=== PATIENT | female | born 1995 | race Caucasian/White ===

== ENCOUNTER 2017-06-02 23:53 | Emergency (ER) | payer MEDICARE, OTHER ==
[2017-06-03] MEDS ORDERED: 0.9 % SODIUM CHLORIDE 1,000 ML BAG IV ONE (00:19)
[2017-06-03] MEDS ORDERED: ONDANSETRON HCL IV 4 MG/2 ML VIAL IVP ONE (00:20)
[2017-06-03 00:41] LABS: BASO % 0.2 % (0-6); EOS % 0.6 % (0-6); GRAN % 75.9 % (47-80); MEAN CELL VOLUME 88.1 fl (81-97); MEAN CORPUSCULAR HEMOGLOBIN 30.8 pg (27-33); MEAN PLATELET VOLUME 9.4 fl (7.4-10.4); MONO % 6.3 % (0-9); PLATELET COUNT 309 K/uL (130-400); RED BLOOD COUNT 4.54 M/uL (3.80-5.40); RED CELL DISTRIBUTION WIDTH 13.1 % (11.5-14.5); URINE APPEARANCE CLEAR; URINE BILIRUBIN NEGATIVE (NEGATIVE); URINE BLOOD NEGATIVE (NEGATIVE); URINE COLOR YELLOW; URINE GLUCOSE (UA) NEGATIVE (NEGATIVE); URINE KETONE 15 mg/dL (NEGATIVE); URINE LEUKOCYTE ESTERASE NEGATIVE (NEGATIVE); URINE NITRITE NEGATIVE (NEGATIVE); URINE PROTEIN NEGATIVE (NEGATIVE); URINE UROBILINOGEN 0.2 E.U./dL (0.20 - 1.00); WHITE BLOOD COUNT W/O DIFF 14.5 K/uL (4.2-12.2)
[2017-06-03 00:55] LABS: BLOOD UREA NITROGEN 8 mg/dL (6-20); CREATININE 0.4 mg/dL (0.5-0.9); EST GLOMERULAR FILTRATION RATE > 60 mL/min; GLUCOSE,RANDOM 107 mg/dL (74-109)
--- NOTE | 2017-06-03 00:55 | Emergency Department Record ---
History of Present Illness - General Chief complaint: Vomiting Stated complaint: 7 WKS "CANT KEEP ANYTHING DOWN" Time Seen by Provider: 06/03/17 00:08 Source: Patient Mode of Arrival: Ambulatory Limitations: No limitations - History of Present Illness Initial comments: pt is 7 wks . she has had bouts of nausea but today she has not been able to keep water or food down and has vomited everytime she tries. she sees her ob in 6 days MD complaint: Nausea, Vomiting Onset/Timin -: Days(s) Description of Vomiting: Food contents Improves with: Rest Worsens with: Eating, Movement, Rest, Other Associated Symptoms: Fever/chills - Related Data Home Medications Medication Instructions Recorded Confirmed Last Taken Pnv No.95/Ferrous Fum/Folic AC 1 each PO DAILY 06/03/17 06/03/17 06/02/17 [ Multivitamin Tablet] Allergies Allergy/AdvReac Type Severity Reaction Status Date / Time Penicillins Allergy PT UNSURE Verified 06/03/17 00:00 OF REACTION Travel Screening - Travel/Exposure Within Last 30 Days Have you traveled within the last 30 days?: No - Travel Symptoms Symptom Screening: Vomiting Review of Systems Reviewed: No additional complaints except as noted below Constitutional: Reports: As per HPI. Denies: Chills, Fever, Malaise, Night sweats, Weakness, Weight change Eyes: Reports: As per HPI. Denies: Eye discharge, Eye pain, Photophobia, Vision change ENT: Reports: As per HPI. Denies: Congestion, Dental pain, Ear pain, Epistaxis , Hearing loss, Throat pain Respiratory: Reports: As per HPI. Denies: Cough, Dyspnea, Hemoptysis, Stridor, Wheezes Cardiovascular: Reports: As per HPI. Denies: Arrhythmia, Chest pain, Dyspnea on exertion, Edema, Murmurs, Orthopnea, Palpitations, Paroxysmal nocturnal dyspnea, Rheumatic Fever, Syncope Endocrine: Reports: As per HPI. Denies: Fatigue, Heat or cold intolerance, Polydipsia, Polyuria Gastrointestinal: Reports: As per HPI. Denies: Abdominal pain, Constipation, Diarrhea, Hematemesis, Hematochezia, Melena, Nausea, Vomiting Genitourinary: Reports: As per HPI. Denies: Abnormal menses, Discharge, Dyspareunia, Dysuria, Frequency, Hematuria, Incontinence, Retention, Urgency Musculoskeletal: Reports: As per HPI. Denies: Arthralgia, Back pain, Gout, Joint swelling, Myalgia, Neck pain Skin: Reports: As per HPI. Denies: Bruising, Change in color, Change in hair/ nails, Lesions, Pruritus, Rash Neurological: Reports: As per HPI. Denies: Abnormal gait, Confusion, Headache, Numbness, Paresthesias, Seizure, Tingling, Tremors, Vertigo, Weakness Psychiatric: Reports: As per HPI. Denies: Anxiety, Auditory hallucinations, Depression, Homicidal thoughts, Suicidal thoughts, Visual hallucinations Hematological/Lymphatic: Reports: As per HPI. Denies: Anemia, Blood Clots, Easy bleeding, Easy bruising, Swollen glands Past Medical History - SOCIAL HISTORY Smoking Status: Former smoker Alcohol Use: None Drug Use: None - RESPIRATORY Hx Respiratory Disorders: No - CARDIOVASCULAR Hx Cardio Disorders: No - NEURO Hx Neuro Disorders: No - GI Hx GI Disorders: No - Hx Genitourinary Disorders: No - ENDOCRINE Hx Endocrine Disorders: No - MUSCULOSKELETAL Hx Musculoskeletal Disorders: No - PSYCH Hx Psych Problems: No - HEMATOLOGY/ONCOLOGY Hx Hematology/Oncology Disorders: No Family Medical History Any Significant Family History?: Yes Hx Cancer: Mother, Grandparents *Cancer Comment: "SPIDER CELL" CANCER, LUNG Physical Exam - General General Appearance: Alert, Oriented x3, Cooperative, Mild distress - Head Head exam: Normal inspection - Eye Eye exam: Normal appearance, PERRL, EOMI Pupils: Normal accommodation - ENT ENT exam: Normal exam, Mucous membranes moist, Normal external ear exam, Normal orophraynx Ear exam: Normal external inspection. negative: External canal tenderness Nasal Exam: Normal inspection. negative: Discharge, Sinus tenderness Mouth exam: Normal external inspection, Tongue normal Teeth exam: Normal inspection. negative: Dental caries Throat exam: Normal inspection. negative: Tonsillar erythema, Tonsillar exudate - Neck Neck exam: Normal inspection, Full ROM. negative: Tenderness - Respiratory Respiratory exam: Normal lung sounds bilaterally. negative: Respiratory distress - Cardiovascular Cardiovascular Exam: Regular rate, Normal rhythm, Normal heart sounds - GI/Abdominal GI/Abdominal exam: Soft, Normal bowel sounds. negative: Tenderness - Rectal Rectal exam: Deferred - exam: Deferred - Extremities Extremities exam: Normal inspection, Full ROM, Normal capillary refill. negative: Tenderness - Back Back exam: Reports: Normal inspection, Full ROM. Denies: Muscle spasm, Rash noted, Tenderness - Neurological Neurological exam: Alert, CN II-XII intact, Normal gait, Oriented X3 - Psychiatric Psychiatric exam: Normal affect, Normal mood - Skin Skin exam: Dry, Intact, Normal color, Warm Course Vital Signs 06/03/17 00:02 Temperature 98.2 F Pulse Rate [ 72 Pulse Ox Probe] Respiratory 18 Rate Blood Pressure 124/66 [Left Arm] Pulse Ox 96 Medical Decision Making - Lab Data Result diagrams: 06/03/17 00:35 06/03/17 00:35 Lab Results 06/03/17 06/03/17 Range/Units 00:35 00:35 WBC 14.5 H (4.2-12.2) K/uL RBC 4.54 (3.80-5.40) M/uL Hgb 14.0 (11.6-16.0) gm/dl Hct 40.0 (35.0-47.0) % MCV 88.1 (81-97) fl MCH 30.8 (27-33) pg MCHC 35.0 (32-36) g/dl RDW 13.1 (11.5-14.5) % Plt Count 309 (130-400) K/uL MPV 9.4 (7.4-10.4) fl Gran % 75.9 (47-80) % Lymphocytes % 17.0 (16-45) % Monocytes % 6.3 (0-9) % Eosinophils % 0.6 (0-6) % Basophils % 0.2 (0-6) % Urine Color Yellow Urine Appearance Clear Urine pH 7.5 (5.0-8.0) Ur Specific [place] 1.015 (1.002-1.030) Urine Protein Negative (NEGATIVE) Urine Glucose (UA) Negative (NEGATIVE) Urine Ketones 15 mg/dl H (NEGATIVE) Urine Blood Negative (NEGATIVE) Urine Nitrite Negative (NEGATIVE) Urine Bilirubin Negative (NEGATIVE) Urine Urobilinogen 0.2 (0.20 - 1.00) E.U./dL Ur Leukocyte Esterase Negative (NEGATIVE) Disposition Disposition: Discharge Clinical Impression: Hyperemesis gravidarum Disposition: Home, Self-Care Condition: (1) Good Instructions: Hyperemesis Gravidarum (ED) Additional Instructions: push fluids. follow up with assistant grocery . return sooner if worse Forms: Patient Portal Access Quality - Quality Measures Quality Measures: N/A - Blood Pressure Screening Does Patient Have Any of the Following: No Blood Pressure Classification: Pre-Hypertensive BP Reading Systolic Measurement: 124 Diastolic Measurement: 66 Screening for High Blood Pressure: < Pre-Hypertensive BP, F/U Documented > [ G8950] Pre-Hypertensive Follow-up Interventions: Follow-up with rescreen every year.
== END 2017-06-03 01:33 | disposition home or self-care (01) ==
LOC: ER 23:53
DX: O21.0 Mild hyperemesis gravidarum (principal); Z3A.01 Less than 8 weeks gestation of pregnancy
CPT/HCPCS: 99284 ×2; 96374; 96361; 85025; 80048; 81003; J2405; J7030

== ENCOUNTER 2017-06-04 06:03 | Emergency (ER) | payer MEDICARE ==
[2017-06-04] MEDS: ONDANSETRON HCL IV 4 MG/2 ML VIAL IVP ONE (06:22)
[2017-06-04] MEDS: 0.9 % SODIUM CHLORIDE 1,000 ML BAG IV STA (06:23)
--- NOTE | 2017-06-04 06:25 | Emergency Department Record ---
History of Present Illness - General Chief complaint: Vomiting Stated complaint: 7 WKS "CANT KEEP ANYTHING DOWN" Time Seen by Provider: 06/04/17 06:24 Source: Patient Mode of Arrival: Ambulatory Limitations: No limitations - History of Present Illness Initial comments: pt here for intractable vomiting. she is 7 wks preg. she was here yesterday for the same. she sees her ob next week MD complaint: Nausea, Vomiting -: Days(s) Description of Vomiting: Watery Associated Abdominal Pain: No Associated Symptoms: Nausea/vomiting - Related Data Previous Rx's Medication Instructions Recorded Doxylamine Succinate [Unisom] 12.5 mg PO TID #20 tablet 06/04/17 Pyridoxine HCl (Vitamin B6) 25 mg PO TID #20 tablet 06/04/17 [Vitamin B-6] Allergies Allergy/AdvReac Type Severity Reaction Status Date / Time Penicillins Allergy PT UNSURE Verified 06/03/17 00:00 OF REACTION Travel Screening - Travel/Exposure Within Last 30 Days Have you traveled within the last 30 days?: No Review of Systems Reviewed: No additional complaints except as noted below Constitutional: Reports: As per HPI. Denies: Chills, Fever, Malaise, Night sweats, Weakness, Weight change Eyes: Reports: As per HPI. Denies: Eye discharge, Eye pain, Photophobia, Vision change ENT: Reports: As per HPI. Denies: Congestion, Dental pain, Ear pain, Epistaxis , Hearing loss, Throat pain Respiratory: Reports: As per HPI. Denies: Cough, Dyspnea, Hemoptysis, Stridor, Wheezes Cardiovascular: Reports: As per HPI. Denies: Arrhythmia, Chest pain, Dyspnea on exertion, Edema, Murmurs, Orthopnea, Palpitations, Paroxysmal nocturnal dyspnea, Rheumatic Fever, Syncope Endocrine: Reports: As per HPI. Denies: Fatigue, Heat or cold intolerance, Polydipsia, Polyuria Gastrointestinal: Reports: As per HPI. Denies: Abdominal pain, Constipation, Diarrhea, Hematemesis, Hematochezia, Melena, Nausea, Vomiting Genitourinary: Reports: As per HPI. Denies: Abnormal menses, Discharge, Dyspareunia, Dysuria, Frequency, Hematuria, Incontinence, Retention, Urgency Musculoskeletal: Reports: As per HPI. Denies: Arthralgia, Back pain, Gout, Joint swelling, Myalgia, Neck pain Skin: Reports: As per HPI. Denies: Bruising, Change in color, Change in hair/ nails, Lesions, Pruritus, Rash Neurological: Reports: As per HPI. Denies: Abnormal gait, Confusion, Headache, Numbness, Paresthesias, Seizure, Tingling, Tremors, Vertigo, Weakness Psychiatric: Reports: As per HPI. Denies: Anxiety, Auditory hallucinations, Depression, Homicidal thoughts, Suicidal thoughts, Visual hallucinations Hematological/Lymphatic: Reports: As per HPI. Denies: Anemia, Blood Clots, Easy bleeding, Easy bruising, Swollen glands Past Medical History - SOCIAL HISTORY Smoking Status: Former smoker Alcohol Use: None Drug Use: None - RESPIRATORY Hx Respiratory Disorders: No - CARDIOVASCULAR Hx Cardio Disorders: No - NEURO Hx Neuro Disorders: No - GI Hx GI Disorders: No - Hx Genitourinary Disorders: No - ENDOCRINE Hx Endocrine Disorders: No - MUSCULOSKELETAL Hx Musculoskeletal Disorders: No - PSYCH Hx Psych Problems: No - HEMATOLOGY/ONCOLOGY Hx Hematology/Oncology Disorders: No Family Medical History Any Significant Family History?: Yes Hx Cancer: Mother, Grandparents *Cancer Comment: "SPIDER CELL" CANCER, LUNG Physical Exam - General General Appearance: Alert, Oriented x3, Cooperative, Mild distress - Head Head exam: Normal inspection - Eye Eye exam: Normal appearance, PERRL, EOMI Pupils: Normal accommodation - ENT ENT exam: Normal exam, Mucous membranes dry, Normal external ear exam, Normal orophraynx Ear exam: Normal external inspection. negative: External canal tenderness Nasal Exam: Normal inspection. negative: Discharge, Sinus tenderness Mouth exam: Normal external inspection, Tongue normal Teeth exam: Normal inspection. negative: Dental caries Throat exam: Normal inspection. negative: Tonsillar erythema, Tonsillar exudate - Neck Neck exam: Normal inspection, Full ROM. negative: Tenderness - Respiratory Respiratory exam: Normal lung sounds bilaterally. negative: Respiratory distress - Cardiovascular Cardiovascular Exam: Regular rate, Normal rhythm, Normal heart sounds - GI/Abdominal GI/Abdominal exam: Soft, Normal bowel sounds. negative: Tenderness - Rectal Rectal exam: Deferred - exam: Deferred - Extremities Extremities exam: Normal inspection, Full ROM, Normal capillary refill. negative: Tenderness - Back Back exam: Reports: Normal inspection, Full ROM. Denies: Muscle spasm, Rash noted, Tenderness - Neurological Neurological exam: Alert, CN II-XII intact, Normal gait, Oriented X3 - Psychiatric Psychiatric exam: Normal affect, Normal mood - Skin Skin exam: Dry, Intact, Normal color, Warm Course Vital Signs 06/04/17 06:20 Temperature 98.1 F Pulse Rate [ 69 Pulse Ox Probe] Respiratory 18 Rate Blood Pressure 128/72 [Left Arm] Pulse Ox 98 - Reevaluation(s) Reevaluation #1: 06/04/17 06:58 d/w dr paulino medjasiel discussed Disposition Disposition: Discharge Clinical Impression: Hyperemesis gravidarum Disposition: Home, Self-Care Condition: (1) Good Instructions: Hyperemesis Gravidarum (ED) Additional Instructions: follow up with training and quality manager. return sooner if worse. use bria capsules and peppermint drops. push fluids Prescriptions: Doxylamine Succinate [Unisom] 12.5 mg PO TID #20 tablet Pyridoxine HCl (Vitamin B6) [Vitamin B-6] 25 mg PO TID #20 tablet Forms: Patient Portal Access Quality - Quality Measures Quality Measures: N/A - Blood Pressure Screening Does Patient Have Any of the Following: No Blood Pressure Classification: Pre-Hypertensive BP Reading Systolic Measurement: 128 Diastolic Measurement: 72 Screening for High Blood Pressure: < Pre-Hypertensive BP, F/U Documented > [ G8950] Pre-Hypertensive Follow-up Interventions: Follow-up with rescreen every year.
[2017-06-04] MEDS: 0.9 % SODIUM CHLORIDE 1,000 ML BAG IV ONE (07:00)
== END 2017-06-04 07:37 | disposition home or self-care (01) ==
LOC: ER 06:03
DX: O21.0 Mild hyperemesis gravidarum (principal); Z3A.01 Less than 8 weeks gestation of pregnancy
CPT/HCPCS: 99284 ×2; 96374; J2405; J7030

== ENCOUNTER 2017-08-02 01:55 | Emergency (ER) | payer MEDICAID, MEDICARE ==
[2017-08-02] MEDS ORDERED: DIPHENHYDRAMINE HCL IV 50 MG/ML VIAL IVP ONE (02:04)
[2017-08-02] MEDS ORDERED: METOCLOPRAMIDE HCL 10 MG/2 ML VIAL IVP ONE (02:04)
--- NOTE | 2017-08-02 02:10 | Emergency Department Record ---
History of Present Illness - General Chief complaint: Vomiting Stated complaint: MICHELLE MCMULLEN, 15 WKS Time Seen by Provider: 08/02/17 01:56 Source: Patient Mode of Arrival: Ambulatory Limitations: No limitations - History of Present Illness Initial comments: 22 yo female presents to ED for evaluation of nausea, vomiting, and dry heaves for the past 4 hours. Patient reports that she is approximately 15 weeks , denies abdominal pain, fevers, chills, or recent illness. Patient reports similar symptoms in May as well resulting from 1st trimester . Patient reports that she has Zofran at home but did not take any tonight. MD complaint: Nausea, Vomiting Onset/Timin -: Hour(s) Associated Abdominal Pain: No Radiation: None Severity: Moderate Consistency: Constant Improves with: None Worsens with: None Associated Symptoms: Denies other symptoms - Related Data Home Medications Medication Instructions Recorded Confirmed Last Taken Ondansetron [Zofran Odt] 4 mg PO Q8H 08/02/17 08/02/17 08/01/17 Previous Rx's Medication Instructions Recorded Ondansetron [Zofran Odt] 4 mg PO Q8H PRN #15 tab.rapdis 08/02/17 Allergies Allergy/AdvReac Type Severity Reaction Status Date / Time Penicillins Allergy PT UNSURE Verified 06/03/17 00:00 OF REACTION Review of Systems Constitutional: Denies: Chills, Fever, Malaise, Night sweats Eyes: Denies: Eye discharge, Eye pain ENT: Denies: Congestion, Ear pain, Epistaxis Respiratory: Denies: Cough, Dyspnea Cardiovascular: Denies: Chest pain, Dyspnea on exertion Endocrine: Denies: Fatigue, Heat or cold intolerance Gastrointestinal: Reports: Nausea, Vomiting. Denies: Abdominal pain Genitourinary: Denies: Incontinence, Retention Musculoskeletal: Denies: Arthralgia, Gout, Joint swelling Skin: Denies: Bruising, Change in color Neurological: Denies: Abnormal gait, Confusion, Headache, Seizure Psychiatric: Denies: Anxiety Hematological/Lymphatic: Denies: Anemia, Blood Clots Past Medical History - SOCIAL HISTORY Smoking Status: Former smoker Drug Use: None - RESPIRATORY Hx Respiratory Disorders: No - CARDIOVASCULAR Hx Cardio Disorders: No - NEURO Hx Neuro Disorders: No - GI Hx GI Disorders: No - Hx Genitourinary Disorders: No - ENDOCRINE Hx Endocrine Disorders: No - MUSCULOSKELETAL Hx Musculoskeletal Disorders: No - PSYCH Hx Psych Problems: No - HEMATOLOGY/ONCOLOGY Hx Hematology/Oncology Disorders: No Family Medical History Hx Cancer: Mother, Grandparents *Cancer Comment: "SPIDER CELL" CANCER, LUNG Physical Exam - General General Appearance: Alert, Oriented x3, Cooperative, Mild distress Limitations: No limitations - Head Head exam: Atraumatic, Normocephalic, Normal inspection Head exam detail: negative: Abrasion, Contusion, Barry's sign, General tenderness, Hematoma, Laceration - Eye Eye exam: Normal appearance. negative: Conjunctival injection, Periorbital swelling, Periorbital tenderness, Scleral icterus - ENT Ear exam: negative: Auricular hematoma, Auricular trauma Nasal Exam: negative: Active bleeding, Discharge, Dried blood, Foreign body Mouth exam: negative: Drooling, Laceration, Muffled voice, Tongue elevation - Neck Neck exam: Normal inspection. negative: Meningismus, Tenderness - Respiratory Respiratory exam: Normal lung sounds bilaterally. negative: Rales, Respiratory distress, Rhonchi, Stridor - Cardiovascular Cardiovascular Exam: Regular rate, Normal rhythm, Normal heart sounds - GI/Abdominal GI/Abdominal exam: Soft. negative: Rebound, Rigid, Tenderness - Rectal Rectal exam: Deferred - exam: Deferred - Extremities Extremities exam: Normal inspection. negative: Calf tenderness, Pedal edema, Tenderness - Back Back exam: Denies: CVA tenderness (R), CVA tenderness (L) - Neurological Neurological exam: Alert, Normal gait, Oriented X3 - Psychiatric Psychiatric exam: Anxious - Skin Skin exam: Normal color. negative: Abrasion Type of lesion: negative: abrasion Course - Reevaluation(s) Reevaluation #1: 08/02/17 02:45 Labs reviewed, CO2 19, WBC 15.2. Labs are otherwise grossly unremarkable for an acute process. Abdominal examination is 100% non-tender, will reassessed following UA result. Reevaluation #2: 08/02/17 02:53 Patient reassessed and reports that she is feeling much improved. Will continue to observe pending UA results. Reevaluation #3: 08/02/17 03:09 UA reviewed and appears negative for infection. Patient's symptoms are improved and she appears stable for discharge at this time on Zofran for recurrent vomiting symptoms. Medical Decision Making - Lab Data Result diagrams: 08/02/17 02:08 08/02/17 02:11 Disposition Disposition: Discharge Clinical Impression: Nausea & vomiting Qualifiers: Vomiting type: unspecified Vomiting Intractability: non-intractable Qualified Code(s): R11.2 - Nausea with vomiting, unspecified Disposition: Home, Self-Care Condition: (2) Stable Instructions: Acute Nausea and Vomiting (ED) Additional Instructions: Return to ED if your symptoms worsen or if you have any concerns. Zofran as directed. Follow-up with your OB in 3-5 days as directed. Prescriptions: Ondansetron [Zofran Odt] 4 mg PO Q8H PRN #15 tab.rapdis PRN Reason: Nausea/Vomiting Forms: Patient Portal Access Time of Disposition: 02:10 Quality - Quality Measures Quality Measures: N/A - Blood Pressure Screening Does Patient Have Any of the Following: No Blood Pressure Classification: Hypertensive Reading Systolic Measurement: 144 Diastolic Measurement: 79 Screening for High Blood Pressure: < First Hypertensive BP, F/U Documented > [ G8950] First Hypertensive Follow-up Interventions: Referral to alternative/primary care provider.
[2017-08-02 02:13] LABS: BASO % 0.2 % (0-6); EOS % 0.9 % (0-6); GRAN % 77.4 % (47-80); HEMATOCRIT 36.9 % (35.0-47.0); HEMOGLOBIN 13.1 gm/dl (11.6-16.0); LYMPH % 17.2 % (16-45); MEAN CELL VOLUME 88.7 fl (81-97); MEAN CORPUSCULAR HEMOGLOBIN 31.5 pg (27-33); MEAN CORPUSCULAR HGB CONC 35.5 g/dl (32-36); MEAN PLATELET VOLUME 9.1 fl (7.4-10.4); MONO % 4.3 % (0-9); PLATELET COUNT 356 K/uL (130-400); RED BLOOD COUNT 4.16 M/uL (3.80-5.40); RED CELL DISTRIBUTION WIDTH 12.5 % (11.5-14.5); WHITE BLOOD COUNT W/O DIFF 15.2 K/uL (4.2-12.2)
[2017-08-02] MEDS ORDERED: 0.9 % SODIUM CHLORIDE 1000ML 1,000 ML IV SCH (02:15)
[2017-08-02 02:30] LABS: ALB/GLOB RATIO 1.2 (1.1-1.8); ALBUMIN 3.8 g/dL (4.0-5.0); ALKALINE PHOSPHATASE 59 U/L (35-104); ALT/SGPT 10 U/L (<33); AST/SGOT 13 U/L (10.0-35.0); LIPASE 14 U/L (13-60)
[2017-08-02 02:35] LABS: BLOOD UREA NITROGEN 5 mg/dL (6-20); CREATININE 0.4 mg/dL (0.5-0.9); EST GLOMERULAR FILTRATION RATE > 60 mL/min
[2017-08-02 02:37] LABS: GLUCOSE,RANDOM 116 mg/dL (74-109)
[2017-08-02 03:05] LABS: URINE BILIRUBIN NEGATIVE (NEGATIVE); URINE BLOOD NEGATIVE (NEGATIVE); URINE GLUCOSE (UA) NEGATIVE (NEGATIVE); URINE KETONE NEGATIVE (NEGATIVE); URINE LEUKOCYTE ESTERASE NEGATIVE (NEGATIVE); URINE NITRITE NEGATIVE (NEGATIVE); URINE PROTEIN NEGATIVE (NEGATIVE); URINE UROBILINOGEN 0.2 E.U./dL (0.20 - 1.00)
[2017-08-02 03:06] LABS: URINE APPEARANCE SL CLOUDY; URINE COLOR YELLOW
[2017-08-02 03:08] LABS: AMPHETAMINE SCREEN URINE NOT DETECTED; BARBITURATE SCREEN URINE NOT DETECTED; BENZODIAZEPINE SCREEN URINE NOT DETECTED; COCAINE SCREEN URINE NOT DETECTED; METHADONE SCREEN URINE NOT DETECTED; METHAMPHETAMINE SCREEN NOT DETECTED; OPIATE SCREEN URINE NOT DETECTED; OXYCODONE SCREEN URINE NOT DETECTED; PHENCYCLIDINE SCREEN URINE NOT DETECTED; PROPOXYPHENE SCREEN URINE NOT DETECTED; THC SCREEN URINE DETECTED; TRICYCLIC ANTIDEPRESSANT SCRN NOT DETECTED
== END 2017-08-02 03:29 | disposition home or self-care (01) ==
LOC: ER 01:55
DX: O21.9 Vomiting of pregnancy, unspecified (principal); Z3A.15 15 weeks gestation of pregnancy
CPT/HCPCS: 80053; 80305; 81003; 83690; 85025; 96374; 96375; 99284; J1200; J2765; J7030

== ENCOUNTER 2018-05-18 20:17 | Emergency (ER) | payer SELFPAY ==
[2018-05-18 20:34] LABS: BASO % 0.2 % (0-6); EOS % 1.3 % (0-6); GRAN % 64.2 % (47-80); HEMATOCRIT 41.1 % (35.0-47.0); HEMOGLOBIN 13.7 gm/dl (11.6-16.0); LYMPH % 27.9 % (16-45); MEAN CELL VOLUME 80.9 fl (81-97); MEAN CORPUSCULAR HGB CONC 33.3 g/dl (32-36); MEAN PLATELET VOLUME 8.9 fl (7.4-10.4); MONO % 6.4 % (0-9); PLATELET COUNT 369 K/uL (130-400); RED BLOOD COUNT 5.08 M/uL (3.80-5.40); RED CELL DISTRIBUTION WIDTH 14.9 % (11.5-14.5); WHITE BLOOD COUNT W/O DIFF 13.3 K/uL (4.2-12.2)
[2018-05-18] MEDS ORDERED: ONDANSETRON HCL IV 4 MG/2 ML VIAL IVP ONE (20:34)
[2018-05-18] MEDS ORDERED: FENTANYL PF 100MCG/2ML VIAL IVP ONE ×2 (20:39→22:33)
[2018-05-18 20:44] LABS: BLOOD UREA NITROGEN 11 mg/dL (6-20); CREATININE 0.7 mg/dL (0.5-0.9); EST GLOMERULAR FILTRATION RATE > 60 mL/min
[2018-05-18 20:45] LABS: TOTAL PROTEIN 7.8 g/dL (6.6-8.7)
[2018-05-18] MEDS ORDERED: 0.9 % SODIUM CHLORIDE 1000ML 1,000 ML IV SCH (20:45)
--- NOTE | 2018-05-18 20:46 | Emergency Department Record ---
History of Present Illness - General Chief Complaint: Abdominal Pain Stated Complaint: ABDOMINAL/BACK PAIN Time Seen by Provider: 05/18/18 20:17 Source: Patient Mode of Arrival: Ambulatory Limitations: No limitations - History of Present Illness Initial Comments: 22 yo female presents to ED for evaluation of abdominal/low back pain symptoms that began approximately 3 hours ago. Patient reports lower abdominal pain for the past 2 months following IUD placement. Patient reports nausea and vomiting symptoms, denies fevers, chills, or recent illness. Patient reports that her IUD was placed at 8 weeks post-. Patient reports mild vaginal bleeding following placement associated with her pain symptoms. Patient denies urinary symptoms or health problems at baseline. MD Complaint: Abdominal pain Onset/Timin -: Hour(s) Location: LLQ Radiation: L flank Severity scale (1-10): 10 Quality: Cramping Consistency: Constant Improves With: Nothing Worsens With: Movement Associated Symptoms: Nausea, Vomiting - Related Data Home Medications Medication Instructions Recorded Confirmed Last Taken No Home Med [NO HOME MEDS] 05/18/18 05/18/18 Unknown Allergies Allergy/AdvReac Type Severity Reaction Status Date / Time Penicillins Allergy PT UNSURE Verified 05/18/18 20:24 OF REACTION Travel Screening - Travel/Exposure Within Last 30 Days Have you traveled within the last 30 days?: No - Travel Symptoms Symptom Screening: None Review of Systems Constitutional: Denies: Chills, Fever, Malaise, Night sweats Eyes: Denies: Eye discharge, Eye pain ENT: Denies: Congestion, Ear pain, Epistaxis Respiratory: Denies: Cough, Dyspnea Cardiovascular: Denies: Chest pain, Dyspnea on exertion Endocrine: Denies: Fatigue, Heat or cold intolerance Gastrointestinal: Reports: Abdominal pain, Nausea, Vomiting. Denies: Constipation Genitourinary: Denies: Incontinence, Retention Musculoskeletal: Reports: Back pain. Denies: Arthralgia Skin: Denies: Bruising, Change in color Neurological: Denies: Abnormal gait, Confusion, Headache, Seizure Psychiatric: Denies: Anxiety Hematological/Lymphatic: Denies: Anemia, Blood Clots Past Medical History - SOCIAL HISTORY Smoking Status: Current every day smoker - RESPIRATORY Hx Respiratory Disorders: No - CARDIOVASCULAR Hx Cardio Disorders: No - NEURO Hx Neuro Disorders: No - GI Hx GI Disorders: No - Hx Genitourinary Disorders: No - ENDOCRINE Hx Endocrine Disorders: No - MUSCULOSKELETAL Hx Musculoskeletal Disorders: No - PSYCH Hx Psych Problems: No - HEMATOLOGY/ONCOLOGY Hx Hematology/Oncology Disorders: No Family Medical History Any Significant Family History?: Yes Hx Cancer: Mother, Grandparents *Cancer Comment: "SPIDER CELL" CANCER, LUNG Physical Exam - General General Appearance: Alert, Oriented x3, Cooperative, Moderate distress Limitations: No limitations - Head Head exam: Atraumatic, Normocephalic, Normal inspection Head exam detail: negative: Abrasion, Contusion, Barry's sign, General tenderness, Hematoma, Laceration (crying on examination) - Eye Eye exam: Normal appearance. negative: Conjunctival injection, Periorbital swelling, Periorbital tenderness, Scleral icterus - ENT Ear exam: negative: Auricular hematoma, Auricular trauma Nasal Exam: negative: Active bleeding, Discharge, Dried blood, Foreign body Mouth exam: negative: Drooling, Laceration, Muffled voice, Tongue elevation - Neck Neck exam: Normal inspection. negative: Meningismus, Tenderness - Respiratory Respiratory exam: Normal lung sounds bilaterally. negative: Rales, Respiratory distress, Rhonchi, Stridor - Cardiovascular Cardiovascular Exam: Regular rate, Normal rhythm, Normal heart sounds - GI/Abdominal GI/Abdominal exam: Soft, Tenderness (TTP LLQ and suprapubic regions on examination). negative: Rebound, Rigid - Rectal Rectal exam: Deferred - exam: Deferred - Extremities Extremities exam: Normal inspection. negative: Calf tenderness, Pedal edema, Tenderness - Back Back exam: Denies: CVA tenderness (R), CVA tenderness (L) - Neurological Neurological exam: Alert, Normal gait, Oriented X3 - Psychiatric Psychiatric exam: Normal affect, Normal mood - Skin Skin exam: Normal color. negative: Abrasion Type of lesion: negative: abrasion Course Vital Signs 05/18/18 20:22 Temperature 98.7 F Pulse Rate [ 70 Pulse Ox Probe] Respiratory 20 Rate Blood Pressure 141/104 [Left Arm] Pulse Ox 97 - Reevaluation(s) Reevaluation #1: 05/18/18 20:59 Bedside US performed: No FF in the pelvis is visualized, IUD appears in satisfactory placement within the uterus. Laboratory studies were reviewed and are grossly unremarkable except for WBC 13.3. Awaiting HCG for . Patient appears significantly more comfortable following Fentanyl. Reevaluation #2: 05/18/18 21:26 Urine negative UA reviewed and appears c/w contamination vs. infection. Reevaluation #3: 05/18/18 22:29 CT Abdomen and Pelvis: Corpus luteum cyst left, trace FF pelvis IUD in place. Patient continues remains in significant pain on re-examination, cannot exclude ovarian torsion as a result. Will initiate transfer for US of the pelvis for further evaluation. Reevaluation #4: 05/18/18 22:35 Case was discussed with Dr. Zamora ([facility] ED), will accept transfer for US evaluation to exclude acute ovarian torsion. Fentanyl reordered to be given (Ofirmev now completed) Reevaluation #5: 05/18/18 22:55 EMS en-route to the ED. Patient placed call light on, per nursing she is dressed, wants her IV taken out, and is leaving AMA at this time. Patient reports that she is concerned about not having insurance, wants to leave at this time. Patient was informed that EMS is en-route to take her to [facility], patient is declining transfer at this time and wants to leave AMA. Following discussion with the patient regarding transfer, risks of , permanent impairment, or worsening of their current condition were discussed as well as the benefit of transfer by ambulance to [facility] for further evaluation of their presenting symptoms. Patient verbalizes understanding of all risks and benefits, desires to leave AMA despite these risks. Based on my examination , the patient is alert, oriented, and answers all questions appropriately. Patient appears to have the capacity to make rational decisions based on my examination. (Patients significant other was present for the duration of our discussion as well. Patient was encouraged to return to the ED immediately if they change their mind about treatment and want to be re-evaluated and to go directly to [facility] for US of the abdomen immediately. Medical Decision Making - Lab Data Result diagrams: 05/18/18 20:28 05/18/18 20:28 Lab Results 05/18/18 Range/Units 20:28 WBC 13.3 H (4.2-12.2) K/uL RBC 5.08 (3.80-5.40) M/uL Hgb 13.7 (11.6-16.0) gm/dl Hct 41.1 (35.0-47.0) % MCV 80.9 L (81-97) fl MCH 27.0 (27-33) pg MCHC 33.3 (32-36) g/dl RDW 14.9 H (11.5-14.5) % Plt Count 369 (130-400) K/uL MPV 8.9 (7.4-10.4) fl Gran % 64.2 (47-80) % Lymphocytes % 27.9 (16-45) % Monocytes % 6.4 (0-9) % Eosinophils % 1.3 (0-6) % Basophils % 0.2 (0-6) % Disposition Disposition: Discharge Clinical Impression: Ovarian cyst Qualifiers: Laterality: left Qualified Code(s): N83.202 - Unspecified ovarian cyst, left side Disposition: Against Medical Advice Transfer To: [facility] Reason For Transfer: US to exclude ovarian torsion Accepting Physician: Noah Time Discussed w/Accepting Physician: 22:37 Condition: (2) Stable Additional Instructions: Return to ED if your symptoms worsen or if you have any concerns. Go directly to [facility] for further evaluation of your abdominal pain symptoms. Follow-up with your family doctor in 1-3 days as directed. Forms: Patient Portal Access Time of Disposition: 22:59 Quality - Quality Measures Quality Measures: N/A - Blood Pressure Screening Does Patient Have Any of the Following: No Blood Pressure Classification: Pre-Hypertensive BP Reading Systolic Measurement: 136 Diastolic Measurement: 89 Screening for High Blood Pressure: < Pre-Hypertensive BP, F/U Documented > [ G8950] Pre-Hypertensive Follow-up Interventions: Referral to alternative/primary care provider.
[2018-05-18 20:47] LABS: GLUCOSE,RANDOM 107 mg/dL (74-109)
[2018-05-18 20:49] LABS: ALT/SGPT 11 U/L (<33)
[2018-05-18 20:50] LABS: ALB/GLOB RATIO 1.7 (1.1-1.8); ALBUMIN 4.9 g/dL (4.0-5.0); ALKALINE PHOSPHATASE 94 U/L (35-104); AST/SGOT 15 U/L (10.0-35.0); LIPASE 19 U/L (13-60)
[2018-05-18 21:18] LABS: URINE APPEARANCE SL CLOUDY; URINE BILIRUBIN NEGATIVE (NEGATIVE); URINE BLOOD MODERATE (NEGATIVE); URINE COLOR YELLOW; URINE GLUCOSE (UA) NEGATIVE (NEGATIVE); URINE KETONE NEGATIVE (NEGATIVE); URINE LEUKOCYTE ESTERASE NEGATIVE (NEGATIVE); URINE NITRITE NEGATIVE (NEGATIVE); URINE PROTEIN NEGATIVE (NEGATIVE); URINE UROBILINOGEN 0.2 E.U./dL (0.20 - 1.00)
[2018-05-18 21:25] LABS: HCG,QUALITATIVE URINE NEGATIVE (NEGATIVE); URINE BACTERIA 1+; URINE RBC 0 - 2 (NONE SEEN); URINE WBC 0 - 2 (0-2/hpf)
[2018-05-18] MEDS ORDERED: ACETAMINOPHEN 1,000 MG/100 ML BTL IVPB ONE (22:08)
== END 2018-05-18 23:05 | disposition left against medical advice (07) ==
LOC: ER 20:17
DX: N83.202 Unspecified ovarian cyst, left side (principal); R10.32 Left lower quadrant pain; M54.5 Low back pain; R11.2 Nausea with vomiting, unspecified; F17.210 Nicotine dependence, cigarettes, uncomplicated
CPT/HCPCS: 99284 ×2; 96365; 96375; 96361; 83690; 85025; 80053; 81001; 81025; 74177; Q9967; J2405; J3010; J7030

== ENCOUNTER 2019-09-20 23:08 | Emergency (ER) | payer SELFPAY ==
[2019-09-20] MEDS ORDERED: ONDANSETRON 4 MG ODT TABLET SL ONE (23:17)
--- NOTE | 2019-09-20 23:22 | Emergency Department Record ---
History of Present Illness - General Chief Complaint: Flu Like Symptoms Stated Complaint: VOMITING/CHILLS Time Seen by Provider: 09/20/19 23:16 Source: Patient Mode of Arrival: Ambulatory Limitations: No limitations - History of Present Illness Initial Comments: 24 yo female presents from her job with cough, congestion, chills, green sputum and vomiting. She has had upper respiratory symptoms for about 5 days. She has phlegm that causes her to gag and vomit. She has had a few episodes of diarrhea. No fever that she is aware of. No chest or abdominal pain. No dysuria or abnormal vaginal bleeding. She has an IUD. She is on day 4 of 5 of Zithromax given to her at [facility]. MD Complaint: Cough, Nasal congestion, Rhinorrhea, Sore throat -: Days(s) Severity: Moderate Quality: Other Consistency: Intermittent Improves With: Nothing, Other Worsens With: Nothing Context: Other Associated Symptoms: Cough, Nasal congestion, Sore throat Treatments Prior to Arrival: None - Related Data Previous Rx's Medication Instructions Recorded Ondansetron [Zofran Odt] 4 mg PO Q8H #15 tab.rapdis 09/20/19 Allergies Allergy/AdvReac Type Severity Reaction Status Date / Time Penicillins Allergy PT UNSURE Verified 09/20/19 23:20 OF REACTION Review of Systems Constitutional: Reports: Chills. Denies: Fever, Malaise, Weakness Eyes: Denies: Eye discharge, Eye pain, Photophobia, Vision change ENT: Reports: Congestion, Throat pain. Denies: Ear pain, Epistaxis Respiratory: Reports: Cough. Denies: Dyspnea, Wheezes Cardiovascular: Denies: Chest pain, Edema, Palpitations, Syncope Endocrine: Denies: Fatigue, Polydipsia, Polyuria Gastrointestinal: Reports: Diarrhea, Vomiting. Denies: Abdominal pain, Nausea Genitourinary: Denies: Abnormal menses, Dysuria, Urgency Musculoskeletal: Denies: Arthralgia, Back pain, Myalgia Skin: Denies: Bruising, Change in color, Rash Neurological: Denies: Headache, Numbness, Weakness Psychiatric: Denies: Anxiety Hematological/Lymphatic: Denies: Easy bleeding, Easy bruising Past Medical History - SOCIAL HISTORY Smoking Status: Current every day smoker - RESPIRATORY Hx Respiratory Disorders: No - CARDIOVASCULAR Hx Cardio Disorders: No - NEURO Hx Neuro Disorders: No - GI Hx GI Disorders: No - Hx Genitourinary Disorders: No - ENDOCRINE Hx Endocrine Disorders: No - MUSCULOSKELETAL Hx Musculoskeletal Disorders: No - PSYCH Hx Psych Problems: No - HEMATOLOGY/ONCOLOGY Hx Hematology/Oncology Disorders: No Family Medical History Hx Cancer: Mother, Grandparents *Cancer Comment: "SPIDER CELL" CANCER, LUNG Physical Exam - General General Appearance: Alert, Oriented x3, Cooperative, No acute distress Limitations: No limitations - Head Head exam: Atraumatic, Normal inspection - Eye Eye exam: Normal appearance, PERRL. negative: Conjunctival injection, Scleral icterus - ENT ENT exam: Normal exam, Mucous membranes moist, TM's normal bilaterally. negative: Normal orophraynx Ear exam: Normal external inspection Nasal Exam: Discharge. negative: Active bleeding Mouth exam: Normal external inspection Teeth exam: Normal inspection Throat exam: Tonsillar erythema, Tonsillomegaly. negative: Tonsillar exudate, R peritonsillar mass, L peritonsillar mass - Neck Neck exam: Normal inspection, Full ROM, Tenderness. negative: Lymphadenopathy - Respiratory Respiratory exam: Rhonchi. negative: Normal lung sounds bilaterally, Accessory muscle use, Decreased breath sounds, Prolonged expiratory, Respiratory distress, Wheezes - Cardiovascular Cardiovascular Exam: Regular rate, Normal rhythm, Normal heart sounds - GI/Abdominal GI/Abdominal exam: Soft. negative: Tenderness - Rectal Rectal exam: Deferred - exam: Deferred - Extremities Extremities exam: Normal inspection. negative: Calf tenderness, Pedal edema - Back Back exam: Denies: CVA tenderness (R), CVA tenderness (L) - Neurological Neurological exam: Alert, Oriented X3 - Psychiatric Psychiatric exam: Normal affect, Normal mood. negative: Agitated, Anxious - Skin Skin exam: Dry, Intact, Normal color, Warm Course Vital Signs 09/20/19 23:11 Temperature 98.1 F Pulse Rate [ 83 Pulse Ox Probe] Respiratory 20 Rate Blood Pressure 141/72 [Right Arm] Pulse Ox 98 - Reevaluation(s) Reevaluation #1: 09/20/19 23:23 Vitals were reviewed No significant abnormalities 09/20/19 23:43 The Strep and Influenza are negative The CXR was reviewed. 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 We discussed home care and reasons for a recheck in the ED Disposition Disposition: Discharge Clinical Impression: Viral upper respiratory illness Disposition: Home, Self-Care Condition: (1) Good Instructions: Viral Syndrome (ED) Additional Instructions: Review this ER visit and the tests performed with your family doctor Call your doctor for the next available follow up appointment Return to the ER for a recheck immediately if worse, any new concerns or qu estions Take the prescriptions provided as directed Prescriptions: Ondansetron [Zofran Odt] 4 mg PO Q8H #15 tab.rapdis Forms: Patient Portal Access Time of Disposition: 23:45 Quality - Quality Measures Quality Measures: N/A - Blood Pressure Screening Does Patient Have Any of the Following: No Blood Pressure Classification: Hypertensive Reading Systolic Measurement: 141 Diastolic Measurement: 72 Screening for High Blood Pressure: < Pre-Hypertensive BP, F/U Documented > [G8950] Pre-Hypertensive Follow-up Interventions: Referral to alternative/primary care provider.
[2019-09-20 23:30] LABS: STREP A SCREEN NEGATIVE (NEGATIVE)
[2019-09-20 23:40] LABS: INFLUENZA A NEGATIVE (NEGATIVE); INFLUENZA B NEGATIVE (NEGATIVE)
--- NOTE | 2019-09-20 23:47 | RADIOLOGY REPORT ---
EXAMINATION: Two View Chest Radiographs EXAM DATE: 09/20/2019 11:42 PM TECHNIQUE: Frontal and lateral views INDICATION: cough, green sputum 5 days COMPARISON: None ENCOUNTER: Not applicable FINDINGS: The heart, mediastinum, and pulmonary vasculature are normal. No lung consolidation or pleural effu sions are present. IMPRESSION: No acute pulmonary disease process Dictated by: Allyssa Dunbar DO on 09/20/2019 11:44 PM. .
== END 2019-09-21 00:06 | disposition home or self-care (01) ==
LOC: ER 23:08
DX: J06.9 Acute upper respiratory infection, unspecified (principal); R05 Cough; R11.10 Vomiting, unspecified; F17.210 Nicotine dependence, cigarettes, uncomplicated
CPT/HCPCS: 71046; 87400; 87880; 99283